=== PATIENT | female | born 1975 | race Two or more races ===

== ENCOUNTER 2021-04-10 06:00 | Day surgery (SDC) | payer OTHER ==
[2021-04-10] MEDS ORDERED: PEPCID AC20 MG PO (07:52)
== END 2021-04-10 10:50 | disposition home or self-care (01) ==
LOC: AMB-ENDOS 06:00
PROVIDERS: ATTEND Surgery
DX: R13.10 Dysphagia, unspecified (principal); K44.9 Diaphragmatic hernia without obstruction or gangrene